=== PATIENT | male | born 1975 | race Caucasian/White ===

== ENCOUNTER 2017-09-09 13:04 | Emergency (ER) | payer OTHER, BC ==
[2017-09-09 13:27] VITALS: BP 154/81; PULSE 75; TEMP 98.6; BMI 33.7
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
[2017-09-09] MEDS ORDERED: IBUPROFEN 600 MG TABLET (FP) PO ONE ×2 (15:01→15:02)
== END 2017-09-09 15:12 | disposition home or self-care (01) ==
LOC: JERFT 13:04
PROC: 2W3CX1Z Immobilization of Right Lower Arm using Splint (ICD-10-PCS; principal; 2017-09-09)
DX: S69.81XA Other specified injuries of right wrist, hand and finger(s), initial encounter (principal); Y00.XXXA Assault by blunt object, initial encounter; Y93.89 Activity, other specified; Y92.218 Other school as the place of occurrence of the external cause; Y99.0 Civilian activity done for income or pay
CPT/HCPCS: 73130-TC-RT-FY; 99282-25

== ENCOUNTER 2018-04-15 17:47 | Emergency (ER) | payer OTHER ==
[2018-04-15 17:58] VITALS: BP 114/77; PULSE 81; TEMP 98.3; BMI 32.9
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
== END 2018-04-15 18:41 | disposition home or self-care (01) ==
LOC: JERFT 17:47
DX: S00.83XA Contusion of other part of head, initial encounter (principal); Y04.0XXA Assault by unarmed brawl or fight, initial encounter; Y93.89 Activity, other specified; Y92.89 Other specified places as the place of occurrence of the external cause; Y99.0 Civilian activity done for income or pay
CPT/HCPCS: 99281-25